=== PATIENT | male | born 1970 | race Asian ===

== ENCOUNTER 2018-01-09 15:22 | Emergency (ER) | payer OTHER, BC ==
[2018-01-09 15:27] VITALS: BP 130/89; PULSE 97; TEMP 98.7; BMI 25.1
--- NOTE | 2018-01-09 15:56 | PDOC ---
History of Present Illness - General Chief Complaint: Laceration Stated Complaint: FINGER INJURY Time Seen by Provider: 01/09/18 15:29 History Source: Patient Exam Limitations: No Limitations - History of Present Illness Initial Comments: 01/09/18 16:09 Patient is a 47-year-old male who presents to the emergency department today for a cut on his right thumb. Patient states he was cleaning up some garbage when he felt a piece of glass go into his thumb. He noticed that it was bleeding and he came to the emergency department for evaluation. Denies numbness and tingling to the extremity, fevers, weakness in the hand. Patient is right-hand dominant. Pt states he is due for a tetanus shot. Past History - Travel Traveled outside of the country in the last 30 days: No Close contact w/someone who was outside of country & ill: No - Past Medical History Allergies/Adverse Reactions: Allergies Allergy/AdvReac Type Severity Reaction Status Date / Time No Known Allergies Allergy Verified 01/09/18 15:23 Home Medications: Ambulatory Orders NK [No Known Home Medication] 01/09/18 COPD: No - Suicide/Smoking/Psychosocial Hx Smoking History: Never smoked Information on smoking cessation initiated: No Hx Alcohol Use: No Drug/Substance Use Hx: No Substance Use Type: None Review of Systems - Review of Systems Able to Perform ROS?: Yes Comments:: 01/09/18 16:10 CONSTITUTIONAL: Absent: fever, chills, diaphoresis, generalized weakness, malaise, loss of appetite MUSCULOSKELETAL: Absent: myalgia, arthralgia, joint swelling SKIN: Present: laceration to R 1st finger Absent: rash, itching, pallor HEMATOLOGIC/IMMUNOLOGIC: Absent: easy bleeding, easy bruising, lymphadenopathy, frequent infections NEUROLOGIC: Absent: headache, focal weakness or paresthesias, dizziness, unsteady gait, seizure, mental status changes, bladder or bowel incontinence PSYCHIATRIC: Absent: anxiety, depression, suicidal or homicidal ideation, hallucinations. Is the patient limited Bahamian proficient: No *Physical Exam - Vital Signs Last Vital Signs Temp Pulse Resp BP Pulse Ox 98.7 F 97 H 18 130/89 100 01/09/18 15:23 01/09/18 15:23 01/09/18 15:23 01/09/18 15:23 01/09/18 15:23 - Physical Exam Comments: 01/09/18 16:11 GENERAL: The patient is awake, alert, and fully oriented, in no acute distress. HEAD: Normal with no signs of trauma. EYES: Pupils equal, round and reactive to light, extraocular movements intact, sclera anicteric, conjunctiva clear. EXTREMITIES: Normal range of motion, no edema. NEUROLOGICAL: Normal speech, normal gait. PSYCH: Normal mood, normal affect. SKIN: 1cm laceration to the medial tip pad of the R thumb. No tendon exposure. PT able to fully flex and extend the thumbWarm, Dry, normal turgor, no rashes or lesions noted. Procedures - Laceration/Wound Repair Right Medial 1st digit Wound Length: to 2.5 cm Wound Explored: clean, no foreign body present Wound's Depth, Shape: superficial Irrigated w/ Saline: Yes Betadine Prep: Yes Wound Repaired With: Dermabond Medical Decision Making - Medical Decision Making 01/09/18 16:12 Patient is a 47-year-old male who presents emergency department today for a cut to his right first finger. -Patient with 1 cm laceration to the medial aspect of the right thumb pad. -Wound is shallow, repaired with Dermabond. -Wound cleaned and prepared with Betadine prior to repair. -Tetanus shot updated today. -DC home. Return precautions given. Patient says all discharge instructions and all questions were answered. *DC/Admit/Observation/Transfer Diagnosis at time of Disposition: Laceration - Discharge Dispostion Disposition: HOME Condition at time of disposition: Stable Decision to Admit order: No - Referrals Referrals: Marilynn Vega MS [Primary Care Provider] - - Patient Instructions Printed Discharge Instructions: DI for Laceration Repair With Dermabond Additional Instructions: You had your cut fixed today with dermabond It will fall off on its own in 2-4 days Your tetanus shot was updated today. Avoid soaking the hand. Keep it dry when showering. Please keep the area clean and pat dry. You may take Tylenol or Motrin as needed for pain. Follow the dosing instruction on the bottle. Return to the emergency department sooner if you have area of redness around the site, purulent drainage, fevers, or have any changes in your symptoms. - Post Discharge Activity
[2018-01-09] MEDS ORDERED: DIPHTH,PERTUSS(ACELL),TET 0.5 ML DISP.SYRIN IM ONE (15:57)
== END 2018-01-09 16:19 | disposition home or self-care (01) ==
LOC: JERFT 15:22
PROC: 0HQFXZZ Repair Right Hand Skin, External Approach (ICD-10-PCS; principal; 2018-01-09)
PROC: 3E0234Z Introduction of Serum, Toxoid and Vaccine into Muscle, Percutaneous Approach (ICD-10-PCS; 2018-01-09)
DX: S61.011A Laceration without foreign body of right thumb without damage to nail, initial encounter (principal); W25.XXXA Contact with sharp glass, initial encounter; Y93.H9 Activity, other involving exterior property and land maintenance, building and construction; Y92.038 Other place in apartment as the place of occurrence of the external cause; Y99.0 Civilian activity done for income or pay
CPT/HCPCS: 90715; 99282-25

== ENCOUNTER 2018-05-19 08:30 | Emergency (ER) | payer OTHER ==
[2018-05-19 08:36] VITALS: TEMP 98.1; BMI 25.1
--- NOTE | 2018-05-19 08:45 | PDOC ---
History of Present Illness - General Chief Complaint: Pain, Acute Stated Complaint: PAIN Time Seen by Provider: 05/19/18 08:44 Past History - Past Medical History Allergies/Adverse Reactions: Allergies Allergy/AdvReac Type Severity Reaction Status Date / Time No Known Allergies Allergy Verified 05/19/18 08:34 Home Medications: Ambulatory Orders Fenofibrate Nanocrystallized [Fenofibrate] 145 mg PO DAILY 05/19/18 COPD: No Kidney Stones: Yes - Suicide/Smoking/Psychosocial Hx Smoking History: Unknown if ever smoked Hx Alcohol Use: No Drug/Substance Use Hx: No Substance Use Type: None *Physical Exam - Vital Signs Last Vital Signs Temp Pulse Resp BP Pulse Ox 98.1 F 63 22 H 137/90 98 05/19/18 08:30 05/19/18 08:30 05/19/18 08:30 05/19/18 08:30 05/19/18 08:30 Moderate Sedation - Procedure Monitoring Vital Signs: Procedure Monitoring Vital Signs Temperature 98.1 F 05/19/18 08:30 Pulse Rate 63 05/19/18 08:30 Respiratory Rate 22 H 05/19/18 08:30 Blood Pressure 137/90 05/19/18 08:30 O2 Sat by Pulse Oximetry (%) 98 05/19/18 08:30
[2018-05-19] MEDS ORDERED: ONDANSETRON 4 MG/2 ML VIAL IVPUSH ONE ×2 (08:53→11:07)
[2018-05-19] MEDS ORDERED: SODIUM CHLORIDE 1,000 ML IV STA ×2 (08:53→11:09)
[2018-05-19] MEDS ORDERED: morphine CARPU-JECT 4 MG/1 ML DISP.SYRIN IVPUSH ONE (08:53)
--- NOTE | 2018-05-19 08:55 | PDOC ---
History of Present Illness - General Chief Complaint: Pain, Acute Stated Complaint: PAIN Time Seen by Provider: 05/19/18 08:44 History Source: Patient Exam Limitations: No Limitations - History of Present Illness Initial Comments: 05/19/18 09:04 Patient is a 47-year-old male past medical history of renal stones last stone in December, who presents to the emergency department today for right-sided flank pain. Patient states his symptoms started approximately last night at midnight. He states that the pain has been moving down his right flank. He states that the pain is currently a 10 out of 10. He states he cannot get comfortable. Admits to nausea but no vomiting. He states that this pain feels very similar to his last kidney stone. Denies fevers, chills, chest pain, shortness of breath , difficulty breathing, diarrhea, constipation, frequency, urgency and hematuria. Past History - Travel Traveled outside of the country in the last 30 days: No Close contact w/someone who was outside of country & ill: No - Past Medical History Allergies/Adverse Reactions: Allergies Allergy/AdvReac Type Severity Reaction Status Date / Time No Known Allergies Allergy Verified 05/19/18 08:34 Home Medications: Ambulatory Orders Fenofibrate Nanocrystallized [Fenofibrate] 145 mg PO DAILY 05/19/18 Ibuprofen 800 mg PO TID #30 tablet 05/19/18 Ondansetron [Zofran Odt -] 4 mg SL TID #10 od.tablet 05/19/18 Oxycodone HCl/Acetaminophen [Percocet 5-325 mg Tablet] 1 tab PO Q4H #10 tablet MDD 5 05/19/18 Tamsulosin HCl [Flomax -] 0.4 mg PO DAILY #7 capsule 05/19/18 COPD: No Kidney Stones: Yes - Suicide/Smoking/Psychosocial Hx Smoking History: Unknown if ever smoked Hx Alcohol Use: No Drug/Substance Use Hx: No Substance Use Type: None Review of Systems - Review of Systems Able to Perform ROS?: Yes Comments:: 05/19/18 08:58 CONSTITUTIONAL: Absent: fever, chills, diaphoresis, generalized weakness, malaise, loss of appetite HEENT: Absent: rhinorrhea, nasal congestion, throat pain, throat swelling, difficulty swallowing, mouth swelling, ear pain, eye pain, visual Changes CARDIOVASCULAR: Absent: chest pain, loss of consciousness, palpitations, irregular heart rate, peripheral edema RESPIRATORY: Absent: cough, shortness of breath, dyspnea with exertion, orthopnea, wheezing, stridor, hemoptysis GASTROINTESTINAL: Present: R lower quadrant pain Absent: abdominal pain, abdominal distension, nausea, vomiting, diarrhea, constipation, melena, hematochezia GENITOURINARY: Present: R flank pain Absent: dysuria, frequency, urgency, hesitancy, hematuria , genital pain MUSCULOSKELETAL: Absent: myalgia, arthralgia, joint swelling SKIN: Absent: rash, itching, pallor HEMATOLOGIC/IMMUNOLOGIC: Absent: easy bleeding, easy bruising, lymphadenopathy, frequent infections ENDOCRINE: Absent: unexplained weight gain, unexplained weight loss, heat intolerance, cold intolerance NEUROLOGIC: Absent: headache, focal weakness or paresthesias, dizziness, unsteady gait, seizure, mental status changes, bladder or bowel incontinence PSYCHIATRIC: Absent: anxiety, depression, suicidal or homicidal ideation, hallucinations. Is the patient limited Kyrgyz proficient: No *Physical Exam - Vital Signs Last Vital Signs Temp Pulse Resp BP Pulse Ox 98.1 F 63 22 H 137/90 98 05/19/18 08:30 05/19/18 08:30 05/19/18 08:30 05/19/18 08:30 05/19/18 08:30 - Physical Exam Comments: 05/19/18 08:59 GENERAL: Well developed, well nourished. Awake and alert. Moderate distress d/t pain, cannot get comfortable on bed. HEENT: Normocephalic, atraumatic. PERRLA, EOMI. No conjunctival pallor. Sclera are non- icteric. Moist mucous membranes. Oropharynx is clear. NECK: Supple. Full ROM. No JVD. Carotid pulses 2+ and symmetric, without bruits. No thyromegaly. No lymphadenopathy. CARDIOVASCULAR: Regular rate and rhythm. No murmurs, rubs, or gallops. Distal pulses are 2+ and symmetric. PULMONARY: No evidence of respiratory distress. Lungs clear to auscultation bilaterally. No wheezing, rales or rhonchi. ABDOMINAL: TTP RLQ. Soft. Non-distended. No rebound or guarding. No organomegaly. Normoactive bowel sounds. MUSCULOSKELETAL Normal range of motion at all joints. No bony deformities or tenderness. (+) R CVA tenderness. EXTREMITIES: No cyanosis. No clubbing. No edema. No calf tenderness. SKIN: Warm and dry. Normal capillary refill. No rashes. No jaundice. NEUROLOGICAL: Alert, awake, appropriate. Cranial nerves 2-12 intact. No deficits to light touch and temperature in face, upper extremities and lower extremities. No motor deficits in the in face, upper extremities and lower extremities. Normoreflexic in the upper and lower extremities. Normal speech. Toes are down- going bilaterally. Gait is normal without ataxia. PSYCHIATRIC: Cooperative. Good eye contact. Appropriate mood and affect. Moderate Sedation - Procedure Monitoring Vital Signs: Procedure Monitoring Vital Signs Temperature 98.1 F 05/19/18 08:30 Pulse Rate 63 05/19/18 08:30 Respiratory Rate 22 H 05/19/18 08:30 Blood Pressure 137/90 05/19/18 08:30 O2 Sat by Pulse Oximetry (%) 98 05/19/18 08:30 ED Treatment Course - LABORATORY CBC & Chemistry Diagram: 05/19/18 09:00 05/19/18 09:00 - RADIOLOGY Radiology Studies Ordered: Category Date Time Status SPIRAL- RENAL-STONE CT [CT] Stat CT Scan 05/19/18 08:54 Ordered Medical Decision Making - Medical Decision Making 05/19/18 09:05 Patient is a 47-year-old male who presents to the ER with 9 hours of right flank pain. On exam patient with right-sided CVA tenderness and right lower quadrant tenderness. Patient appears very uncomfortable on the bed and cannot get comfortable. High suspicion for renal stone at this time. Zofran, morphine and IV fluids ordered. Basic labs, urine and CT spiral Reevaluate 05/19/18 13:14 2mm renal stone seen in the 05/19/18 17:14 Pt states that the pain is managable at this time and would like to go home Pain meds, flomax, zofran sent to patient pharmacy pt to f/u with PCP and urology DC home I discussed the physical exam findings, ancillary test results and final diagnoses with the patient. I answered all of the patient's questions. The patient was satisfied with the care received and felt comfortable with the discharge plan and treatment plan. The Patient agrees to follow up with the primary care physician/specialist within 24-72 hours. Return precautions were given. *DC/Admit/Observation/Transfer Diagnosis at time of Disposition: Kidney stone on right side - Discharge Dispostion Disposition: HOME Condition at time of disposition: Stable Decision to Admit order: No - Referrals Referrals: Nolan Leija MD [Staff Physician] - - Patient Instructions Printed Discharge Instructions: DI for Kidney Stones Additional Instructions: You have a kidney stone on the right side as seen on CAT scan. It is approximately 2 mm and should pass on its own. Please drink plenty of fluids. Take ibuprofen 800 mg every 8 hours for pain and inflammation. You may take 1 Percocet every 4 hours as needed for breakthrough pain. Do not drink or drive after taking this medication as it may make you drowsy. Please take the Zofran every 8 hours as needed for nausea. Take the Flomax daily to help with urination. Follow up with your urologist in 2-3 days. Return to the ER if he develops fevers, worsening pain, nausea vomiting despite medication or if you have any changes in your symptoms. - Post Discharge Activity Forms/Work/School Notes: Back to Work
[2018-05-19] MEDS ORDERED: ONDANSETRON 4 MG/2 ML VIAL ONE ×3 (08:57→11:59)
[2018-05-19] MEDS ORDERED: morphine SULFATE 4 MG/ML VIAL ONE (08:57)
[2018-05-19 09:16] LABS: URINE APPEARANCE CLEAR; URINE BILIRUBIN NEGATIVE (<2.0 mg/dL); URINE COLOR YELLOW; URINE GLUCOSE (UA) NEGATIVE (NEGATIVE); URINE KETONE NEGATIVE (NEGATIVE); URINE LEUK ESTERASE NEGATIVE (NEGATIVE); URINE NITRITE NEGATIVE (NEGATIVE); URINE PROTEIN NEGATIVE (NEGATIVE); URINE UROBILINOGEN NEGATIVE mg/dL (0.2-1.0)
[2018-05-19 09:19] LABS: BASO % 0.4 % (0-2.0); EOS % 0.5 % (0-4.5); HEMATOCRIT 45.1 % (35.4-49); HEMOGLOBIN 16.1 GM/dL (11.7-16.9); LYMPH % 25.6 % (8-40); MCH 30.6 pg (25.7-33.7); MCHC 35.6 g/dl (32.0-35.9); MEAN CELL VOLUME 85.8 fl (80-96); MEAN PLT VOLUME 8.5 fl (7.5-11.1); MONO % 5.3 % (3.8-10.2); NEUT % 68.2 % (42.8-82.8); PLATELET COUNT 229 K/MM3 (134-434); RBC 5.25 M/mm3 (4.00-5.60); WHITE BLOOD COUNT 8.2 K/mm3 (4.0-10.0)
[2018-05-19 10:12] LABS: URINE MUCUS RARE
[2018-05-19 10:17] LABS: ALBUMIN 4.3 g/dl (3.4-5.0); ALK PHOS 81 U/L (45-117); ANION GAP 7 MMOL/L (8-16); BILIRUBIN,TOTAL 0.6 mg/dL (0.2-1); BLOOD UREA NITROGEN 17 mg/dL (7-18); CALCIUM 9.6 mg/dL (8.5-10.1); CHLORIDE 104 mmol/L (98-107); CO2 28 mmol/L (21-32); CREATININE 1.1 mg/dL (0.55-1.3); GLUCOSE,RANDOM 150 mg/dL (74-106); POTASSIUM 4.5 mmol/L (3.5-5.1); SGOT/AST 36 U/L (15-37); SGPT/ALT 82 U/L (13-61); SODIUM 139 mmol/L (136-145)
[2018-05-19] MEDS ORDERED: KETOROLAC TROMETHAMINE 30 MG/1 ML VIAL IVPUSH ONE (11:07)
[2018-05-19] MEDS ORDERED: KETOROLAC TROMETHAMINE 30 MG/1 ML VIAL ONE (11:59)
[2018-05-19 18:17] VITALS: BP 125/62; PULSE 62
== END 2018-05-19 18:16 | disposition home or self-care (01) ==
LOC: JER 08:30
PROC: 3E0337Z Introduction of Electrolytic and Water Balance Substance into Peripheral Vein, Percutaneous Approach (ICD-10-PCS; principal; 2018-05-19)
PROC: 3E033GC Introduction of Other Therapeutic Substance into Peripheral Vein, Percutaneous Approach (ICD-10-PCS; 2018-05-19)
PROC: 3E033GC Introduction of Other Therapeutic Substance into Peripheral Vein, Percutaneous Approach (ICD-10-PCS; 2018-05-19)
PROC: 3E033NZ Introduction of Analgesics, Hypnotics, Sedatives into Peripheral Vein, Percutaneous Approach (ICD-10-PCS; 2018-05-19)
PROC: 3E0333Z Introduction of Anti-inflammatory into Peripheral Vein, Percutaneous Approach (ICD-10-PCS; 2018-05-19)
DX: N20.0 Calculus of kidney (principal)
CPT/HCPCS: 36415; 74176; 80053; 81003; 81015; 85025; 87086; 99284-25; J7030

== ENCOUNTER 2019-01-18 16:57 | Emergency (ER) | payer BC ==
[2019-01-18] MEDS ORDERED: SODIUM CHLORIDE 1,000 ML IV STA ×2 (17:15→20:07)
[2019-01-18] MEDS ORDERED: KETOROLAC TROMETHAMINE 30 MG/1 ML VIAL IVPUSH ONE (17:15)
[2019-01-18 17:17] VITALS: TEMP 97.7; BMI 26.6
--- NOTE | 2019-01-18 17:18 | PDOC ---
Rapid Medical Evaluation Chief Complaint: Pain, Acute Time Seen by Provider: 01/18/19 17:14 Medical Evaluation: Allergies Allergy/AdvReac Type Severity Reaction Status Date / Time No Known Allergies Allergy Verified 01/18/19 17:14 01/18/19 17:15 48 year old male c/o right flank pain pain 02/15. + right CVAT + dysuria PMHX: kidney stone A: kidney stone P: Labs Urine culture spiral CT patint to the ER for further management of care. 01/18/19 17:17 Discharge Disposition - Diagnosis Flank pain - Referrals - Patient Instructions - Post Discharge Activity
[2019-01-18] MEDS ORDERED: ONDANSETRON 4 MG/2 ML VIAL IVPUSH ONE (17:30)
[2019-01-18 17:43] LABS: BASO % 0.7 % (0-2.0); EOS % 0.9 % (0-4.5); HEMATOCRIT 47.2 % (35.4-49); HEMOGLOBIN 15.9 GM/dL (11.7-16.9); LYMPH % 19.1 % (8-40); MCH 29.3 pg (25.7-33.7); MCHC 33.7 g/dl (32.0-35.9); MEAN PLT VOLUME 8.6 fl (7.5-11.1); MONO % 6.7 % (3.8-10.2); NEUT % 72.6 % (42.8-82.8); PLATELET COUNT 239 K/MM3 (134-434); RBC 5.43 M/mm3 (4.00-5.60); RDW 13.7 % (11.9-15.9); WHITE BLOOD COUNT 8.8 K/mm3 (4.0-10.0)
[2019-01-18] MEDS ORDERED: KETOROLAC TROMETHAMINE 30 MG/1 ML VIAL ONE (17:50)
[2019-01-18 17:51] LABS: URINE APPEARANCE CLEAR; URINE BILIRUBIN NEGATIVE (NEGATIVE); URINE COLOR YELLOW; URINE GLUCOSE (UA) NEGATIVE (NEGATIVE); URINE KETONE NEGATIVE (NEGATIVE); URINE LEUK ESTERASE NEGATIVE (NEGATIVE); URINE NITRITE NEGATIVE (NEGATIVE); URINE PROTEIN NEGATIVE (NEGATIVE); URINE UROBILINOGEN 0.2 mg/dL (0.2-1.0)
[2019-01-18] MEDS ORDERED: ONDANSETRON 4 MG/2 ML VIAL ONE (17:51)
--- NOTE | 2019-01-18 17:55 | PDOC ---
History of Present Illness - General Chief Complaint: Pain, Acute Stated Complaint: ABD PAIN Time Seen by Provider: 01/18/19 17:14 History Source: Patient Exam Limitations: No Limitations - History of Present Illness Initial Comments: Pt is a 48 yo M, with PMH of HLD and nephrolithiasis, who is presenting with complaints of R-sided abdominal pain since yesterday. Pt states the pain started yesterday with urinary burning, and progressed to abdominal pain today. The pain in his abdomen is "burning" and intermittent, and feels similar to his prior episodes of kidney stones. Pt also endorses nausea, but no vomiting and has tolerated PO intake today. Pt denies any fevers/chills, headache, vision changes, syncope, chest pain, palpitations, SOB, vomiting, hematuria, flank pain , testicular pain or swelling, diarrhea/constipation, or leg swelling. Allergies: NKDA PCP: Brittani Samuels Social: Pt denies any cigarette, alcohol, or drug use. Pt denies any recent travel or sick contacts. Surgical: no relevant history. Family: no relevant history. 01/18/19 20:10 Past History - Travel Traveled outside of the country in the last 30 days: No Close contact w/someone who was outside of country & ill: No - Past Medical History Allergies/Adverse Reactions: Allergies Allergy/AdvReac Type Severity Reaction Status Date / Time No Known Allergies Allergy Verified 01/18/19 17:14 Home Medications: Ambulatory Orders Fenofibrate Nanocrystallized [Fenofibrate] 145 mg PO DAILY 05/19/18 Tamsulosin HCl [Flomax] 0.4 mg PO DAILY PRN #5 capsule 01/18/19 COPD: No Kidney Stones: Yes - Suicide/Smoking/Psychosocial Hx Smoking History: Never smoked Hx Alcohol Use: No Drug/Substance Use Hx: No Substance Use Type: None Review of Systems - Review of Systems Able to Perform ROS?: Yes Is the patient limited Chinese proficient: No Constitutional: Yes: Weight Stable. No: Chills, Diaphoresis, Fever, Loss of Appetite, Malaise, Weakness HEENTM: No: Recent change in vision, Nose Congestion, Throat Pain, Throat Swelling, Difficulty Swallowing Respiratory: No: Cough, Orthopnea, Shortness of Breath Cardiac (ROS): No: Chest Pain, Edema, Irregular Heart Rate, Lightheadedness, Palpitations, Syncope, Chest Tightness ABD/GI: Yes: See HPI, Nausea, Abdominal cramping. No: Abdominal Distended, Constipated, Diarrhea, Poor Appetite, Poor Fluid Intake, Vomiting : Yes: Burning, Dysuria. No: Discharge, Frequency, Flank Pain, Hematuria, Incontinence, Pain, Urgency, Testicular Mass Musculoskeletal: No: Back Pain, Joint Pain, Muscle Pain, Muscle Weakness Integumentary: No: Rash Neurological: No: Headache, Numbness, Paresthesia, Weakness, Dizziness Psychiatric: No: Sleep Pattern Change, Change in Appetite Endocrine: No: Increased Urine, Change in Weight Hematologic/Lymphatic: No: Anemia, Blood Clots, Easy Bleeding, Easy Bruising All Other Systems: Reviewed and Negative *Physical Exam - Vital Signs Last Vital Signs Temp Pulse Resp BP Pulse Ox 97.7 F 68 18 142/93 97 01/18/19 17:15 01/18/19 17:15 01/18/19 17:15 01/18/19 17:15 01/18/19 17:15 - Physical Exam Comments: Vitals stable, pt afebrile. Pt lying on his side in the bed, normal body habitus. Pt alert and oriented x3. painter and decorator generally intact, muscular strength and sensation intact. No midline spinal tenderness, step-offs, or crepitus. Head normocephalic, atraumatic. Eyes PERRLA, EOMI. Oropharynx without erythema or exudates, no LAD b/l. No nasal congestion, hearing intact. Clear heart sounds, S1/S2, no JVD, b/l pedal edema, or heart murmur. Clear lung sounds, no respiratory distress, wheezes, crackles, or accessory muscle use. No abdominal or CVA tenderness to palpation, no rebound, no guarding. Abdomen soft, non-distended, and with normoactive bowel sounds. Benign abdominal exam. Skin without jaundice or rash. 01/18/19 20:17 ED Treatment Course - LABORATORY CBC & Chemistry Diagram: 01/18/19 17:26 01/18/19 17:26 - ADDITIONAL ORDERS Additional order review: Laboratory Results 01/18/19 17:26 Urine Color Yellow Urine Appearance Clear Urine pH 5.0 Ur Specific [place] 1.027 Urine Protein Negative Urine Glucose (UA) Negative Urine Ketones Negative Urine Blood Negative Urine Nitrite Negative Urine Bilirubin Negative Urine Urobilinogen 0.2 Ur Leukocyte Esterase Negative Medical Decision Making - Critical Care Time Total Critical Care Time (minutes): 25 - Medical Decision Making Pt was seen at bedside, also will be seen by attending Dr. Anne. Pt presenting with complaints of R lower abdominal pain, consistent with his prior kidney stones. No abdominal or CVA TTP on exam. Will evaluate with labs and kidney US to evaluate for infection vs uncomplicated renal/UPJ stones. Provided 4 mg IV zofran and 30 mg IV toradol for improvement of pain. Will continue to reassess pt and monitor for symptomatic improvement. Renal US with non-obstructing 4 mm L renal stone; no hydro CBC and CMP WNL for pt (known elevated LFTs, Cr the same as last visit) UA with no infection Provided 4 mg IV morphine, additional 1 L IV NS and flomax for continued pain and difficulty with urination. 01/18/19 19:59 Pt with continued pain, providing 1 g ofirmev and 4 mg IV morphine (8 mg morphine) Ordered CT abd/pelvis with IV contrast to eval for other etiologies. Abdomen still non-tender. 01/18/19 21:27 Pt vomiting and could not tolerate CT scan; providing reglan and benadryl 01/18/19 22:[address] scan; endorsed to night team. 01/19/19 00:20 *DC/Admit/Observation/Transfer Diagnosis at time of Disposition: Flank pain - Prescriptions Prescriptions: Tamsulosin HCl [Flomax] 0.4 mg PO DAILY PRN #5 capsule PRN Reason: Pain - Referrals Referrals: Brittani Samuels MD [Primary Care Provider] - - Patient Instructions - Post Discharge Activity
[2019-01-18 18:16] LABS: ALBUMIN 4.2 g/dl (3.4-5.0); BILIRUBIN,TOTAL 0.5 mg/dL (0.2-1); BLOOD UREA NITROGEN 17.6 mg/dL (7-18); CALCIUM 9.9 mg/dL (8.5-10.1); CREATININE 1.2 mg/dL (0.55-1.3); POTASSIUM 4.4 mmol/L (3.5-5.1); TOT PROT 7.9 g/dl (6.4-8.2)
[2019-01-18] MEDS ORDERED: morphine CARPU-JECT 4 MG/1 ML DISP.SYRIN IVPUSH ONE ×2 (19:44→21:24)
[2019-01-18] MEDS ORDERED: TAMSULOSIN HCL 0.4 MG CAP PO ONE (20:11)
[2019-01-18] MEDS ORDERED: morphine SULFATE 4 MG/ML VIAL ONE ×2 (20:36→21:31)
[2019-01-18] MEDS ORDERED: TAMSULOSIN HCL 0.4 MG CAP ONE (20:45)
[2019-01-18] MEDS ORDERED: ACETAMINOPHEN 1000 MG/100 ML VIAL (NON FORMULARY) IVPB ONE (21:18)
[2019-01-18] MEDS ORDERED: ACETAMINOPHEN INJECTION 100 ML IVPB ONE (21:31)
--- NOTE | 2019-01-18 21:45 | PDOC ---
Attending Attestation - Resident Resident Name: aDnii Sow - ED Attending Attestation I have performed the following: I have examined & evaluated the patient, The case was reviewed & discussed with the resident, I agree w/resident's findings & plan, Exceptions are as noted - HPI HPI: 01/18/19 21:38 48 M with h/o HLD, kidney stones, presenting to ED with R flank and R abdominal pain. Pt states pain started yesterday, feels like his previous kidney stones. Endorses dysuria. Denies F/C. Endorses nausea without vomiting. - Physicial Exam PE: 01/18/19 21:45 GENERAL: Awake, alert, and fully oriented, in no acute distress. HEAD: No signs of trauma EYES: PERRLA, EOMI, sclera anicteric, conjunctiva clear ENT: Auricles normal inspection, hearing grossly normal, nares patent, oropharynx clear without exudates. Moist mucosa NECK: Nontender, no stepoffs, Normal ROM, supple, no lymphadenopathy, JVD, or masses LUNGS: Breath sounds equal, clear to auscultation bilaterally. No wheezes, and no crackles HEART: Regular rate and rhythm, normal S1 and S2, no murmurs, rubs or gallops ABDOMEN: Soft, nontender, normoactive bowel sounds. No guarding, no rebound. No masses EXTREMITIES: Normal range of motion, no edema. No clubbing or cyanosis. No cords, erythema, or tenderness NEUROLOGICAL: Cranial nerves II through XII intact. 5/5 strength and sensation in all extremities, Normal speech, normal gait, normal cerebellar function SKIN: Warm, Dry, normal turgor, no rashes or lesions noted. : normal scrotum, normal cremasteric reflex, no masses, no tenderness - Medical Decision Making 01/18/19 21:46 48 M with R sided abdominal and flank pain. Likely nephrolithiasis. Labs and UA unremarkable. Renal US without hydro. Will check CT with contrast to r/o stone vs appy 01/19/19 01:18 CT shows 2mm stone in bladder Pt reassessed - now has complete resolution of pain. CT also shows gallstones with GB distention. Pt with normal LFTs, no RUQ tenderness Pt informed of result, will f/u with GI. Pt is well appearing, with normal vitals. Clinically stable for DC at this time. I discussed the physical exam findings, ancillary test results and final diagnoses with the patient. I answered all of the patient's questions. The patient was satisfied with the care received and felt comfortable with the discharge plan and treatment plan. The patient agrees to follow up with the primary care physician within 24-72 hours.
[2019-01-18] MEDS ORDERED: METOCLOPRAMIDE HCL INJECTION 10 MG/2 ML VIAL IVPUSH ONE (22:33)
[2019-01-18] MEDS ORDERED: METOCLOPRAMIDE HCL INJECTION 10 MG/2 ML VIAL ONE (23:36)
[2019-01-18 23:51] VITALS: BP 127/85; PULSE 56
[2019-01-19] MEDS ORDERED: ONDANSETRON *ODT* 4 MG TABLET SL ONE (01:20)
--- NOTE | 2019-01-19 01:23 | PDOC ---
*Physical Exam - Vital Signs Last Vital Signs Temp Pulse Resp BP Pulse Ox 97.7 F 56 L 20 127/85 97 01/18/19 17:15 01/18/19 23:51 01/18/19 23:51 01/18/19 23:51 01/18/19 23:51 ED Treatment Course - LABORATORY CBC & Chemistry Diagram: 01/18/19 17:26 01/18/19 17:26 - ADDITIONAL ORDERS Additional order review: Laboratory Results 01/18/19 01/18/19 17:26 17:26 Sodium 141 Potassium 4.4 Chloride 105 Carbon Dioxide 30 Anion Gap 6 L BUN 17.6 Creatinine 1.2 Est GFR (CKD-EPI)AfAm 83.54 Est GFR (CKD-EPI)NonAf 72.08 Random Glucose 130 H Calcium 9.9 Total Bilirubin 0.5 AST 37 ALT 93 H Alkaline Phosphatase 83 Total Protein 7.9 Albumin 4.2 Urine Color Yellow Urine Appearance Clear Urine pH 5.0 Ur Specific Preston 1.027 Urine Protein Negative Urine Glucose (UA) Negative Urine Ketones Negative Urine Blood Negative Urine Nitrite Negative Urine Bilirubin Negative Urine Urobilinogen 0.2 Ur Leukocyte Esterase Negative 01/18/19 17:26 RBC 5.43 MCV 87.0 MCHC 33.7 RDW 13.7 MPV 8.6 Neutrophils % 72.6 Lymphocytes % 19.1 D Monocytes % 6.7 Eosinophils % 0.9 Basophils % 0.7 - Medications Given in the ED: ED Medications Discontinued Medications Generic Name Dose Route Start Last Admin Trade Name Freq PRN Reason Stop Dose Admin Acetaminophen 1,000 mg 01/18/19 21:18 01/18/19 21:43 Ofirmev Injection - IVPB 01/18/19 21:19 1,000 mg ONCE ONE Administration Diphenhydramine HCl 25 mg 01/18/19 22:33 01/18/19 23:40 Benadryl Injection - IVPUSH 01/18/19 22:34 25 mg ONCE ONE Administration Sodium Chloride 1,000 mls @ 1,000 mls/hr 01/18/19 17:15 01/18/19 17:54 Normal Saline - IV 01/18/19 18:14 1,000 mls/hr ASDIR STA Administration Sodium Chloride 1,000 mls @ 1,000 mls/hr 01/18/19 20:07 01/18/19 20:25 Normal Saline - IV 01/18/19 21:06 1,000 mls/hr ASDIR STA Administration Ketorolac Tromethamine 30 mg 01/18/19 17:15 01/18/19 17:54 Toradol Injection - IVPUSH 01/18/19 17:16 30 mg ONCE ONE Administration Metoclopramide HCl 10 mg 01/18/19 22:33 01/18/19 23:45 Reglan Injection - IVPUSH 01/18/19 22:34 10 mg ONCE ONE Administration Morphine Sulfate 4 mg 01/18/19 19:44 01/18/19 20:25 Morphine Injection - IVPUSH 01/18/19 19:45 4 mg ONCE ONE Administration Morphine Sulfate 4 mg 01/18/19 21:24 01/18/19 21:42 Morphine Injection - IVPUSH 01/18/19 21:25 4 mg ONCE ONE Administration Ondansetron HCl 4 mg 01/18/19 17:30 01/18/19 17:54 Zofran Injection IVPUSH 01/18/19 17:31 4 mg ONCE ONE Administration Tamsulosin HCl 0.4 mg 01/18/19 20:11 01/18/19 20:49 Flomax - PO 01/18/19 20:12 0.4 mg ONCE ONE Administration Medical Decision Making - Medical Decision Making 01/19/19 01:37 Patient signed out by resident Dr. Sow In short patient is a 48 year old wuth a history of HLD and nephrolithiasis who presents with R sided abdominal pain and nausea labs unremarkable pending CT and dispo ED Course CT with possible chronic cholecystitis and 2mm posterior bladder stone patient likely passed kidney stone *DC/Admit/Observation/Transfer Diagnosis at time of Disposition: Flank pain, Nephrolithiasis - Discharge Dispostion Disposition: HOME Condition at time of disposition: Stable Decision to Admit order: No - Prescriptions Prescriptions: Tamsulosin HCl [Flomax] 0.4 mg PO DAILY PRN #5 capsule PRN Reason: Pain - Referrals Referrals: Brittani Samuels MD [Primary Care Provider] - Med Tsang MD [Staff Physician] - - Patient Instructions Printed Discharge Instructions: DI for Kidney Stones Additional Instructions: You were seen in the ED for abdominal pain Your labwork and imaging show stone in the bladder that you likely passed. The CAT scan also showed possible old inflammation of the gallbladder Please follow up with your Primary Doctor within 1 week. You have a referral for Urology, please follow up within 1 week. Return to the ED if you experience worsening abdominal pain, nausea, vomiting, or fevers. - Post Discharge Activity
[2019-01-19] MEDS ORDERED: ONDANSETRON *ODT* 4 MG TABLET ONE (01:33)
== END 2019-01-19 02:11 | disposition home or self-care (01) ==
LOC: JER 16:57
PROC: 3E033NZ Introduction of Analgesics, Hypnotics, Sedatives into Peripheral Vein, Percutaneous Approach (ICD-10-PCS; principal; 2019-01-18)
PROC: 3E033GC Introduction of Other Therapeutic Substance into Peripheral Vein, Percutaneous Approach (ICD-10-PCS; 2019-01-18)
PROC: 3E0333Z Introduction of Anti-inflammatory into Peripheral Vein, Percutaneous Approach (ICD-10-PCS; 2019-01-18)
PROC: 3E0337Z Introduction of Electrolytic and Water Balance Substance into Peripheral Vein, Percutaneous Approach (ICD-10-PCS; 2019-01-18)
DX: R10.31 Right lower quadrant pain (principal); E78.5 Hyperlipidemia, unspecified; N20.0 Calculus of kidney
CPT/HCPCS: 36415; 74177-TC; 76775-TC; 80053; 81003; 85025; 99283-25; J0131; J7030; Q0162

== ENCOUNTER 2019-12-14 06:46 | Emergency (ER) | payer BC ==
[2019-12-14 07:15] VITALS: TEMP 98.6
--- NOTE | 2019-12-14 07:24 | PDOC ---
Attending Attestation - Resident Resident Name: Yuki Antonio - HPI HPI: 12/14/19 11:58 Pt presents to the ED complaining of the acute onset of R flank pain without nausea, vomiting or fever. Denies urinary complaints. 12/14/19 12:07 12/14/19 12:14 - Physicial Exam PE: 12/14/19 12:15 Agree with resident exam. Patient appears mildly uncomfortable. Abdomen is soft, non tender, non distended without guarding or rebound. No CVA tenderness. - Medical Decision Making 12/14/19 12:14 Pt presents to the ED complaining of the acute onset of R flank pain without nausea, vomiting or fever. Labs are within normal limits. Will check CT scan to rule out renal stone or other intrabdominal pathology. Will reassess. Discharge - Discharge Information Problems reviewed: Yes Clinical Impression/Diagnosis: Kidney stone on left side Condition: Stable Disposition: HOME - Additional Discharge Information Prescriptions: Tamsulosin HCl [Flomax -] 0.4 mg PO ONCE PRN #7 capsule PRN Reason: Pain Ondansetron [Zofran *Odt*] 4 mg SL TID PRN #18 od.tablet PRN Reason: Nausea - Follow up/Referral Referrals: Brittani Samuels MD [Primary Care Provider] - - Patient Discharge Instructions Patient Printed Discharge Instructions: DI for Kidney Stones Additional Instructions: You were seen in the emergency department for abdominal pain, and you were found to have a kidney stone. You had a CT scan to confirm this, and the stone was found to be 1.3 mm in size and located in the bladder. This indicates that the stone will most likely pass on its own. Home Care: - You have been prescribed a short course of tamsulosin (Flomax) to help pass the stone. - You have been prescribed Zofran for nausea. - You may use over the counter pain medications such as ibuprofen (Motrin, Advil) 600mg every 6 hours as needed for pain. - Make sure you are drinking plenty of fluids to help pass the kidney stone Follow Up: - Please follow- up with your PCP. You should make an appointment within the next week, especially if your symptoms do not resolve over the next few days. - Seek immediate medical care if you have worsening of your symptoms, you do not pass the stone within 3-4 days, you stop making urine entirely, you have noticeable blood in your urine, you develop fevers to 101F, or you have any medical emergency. - Post Discharge Activity
--- NOTE | 2019-12-14 07:24 | PDOC ---
History of Present Illness - General Chief Complaint: Pain, Acute Stated Complaint: PAIN Time Seen by Provider: 12/14/19 07:23 History Source: Patient Exam Limitations: No Limitations - History of Present Illness Initial Comments: 12/14/19 07:24 HPI: This is a 49 y/o male with a PMH of nephrolithiasis and HLD presenting to the ED with non-radiating L. sided flank pain x2 days. 2 days ago he began having dysuria w/o hematuria and incomplete bladder emptying. He then began having a colicky tight sqeezing pain that became constant and sharp this morning. Motrin improved the pain. He has previously had stones on his r.side, but non on the left. He denies any fever/chills, N/V, diarrhea or constipation. PCP: Dr. Brittani Samuels ROS: GENERAL/CONSTITUTIONAL: No fever/chills. No weakness. CARDIOVASCULAR: No chest pain or shortness of breath. RESPIRATORY: No cough, wheezing, or hemoptysis. GASTROINTESTINAL: No nausea, vomiting, diarrhea or constipation. GENITOURINARY: Yes dysuria and incomplete emptying. No hematuria. MUSCULOSKELETAL: Yes left flank pain and LUQ pain. SKIN: No rash NEUROLOGIC: No headache, loss of consciousness, or change in strength/sensation. PMH: Nephrolithiasis, HLD PSx: Denied Social Hx: Denied Etoh, tobacco Meds: Fenofibrate Allergies: KNDA PE: GENERAL: Awake, alert, and fully oriented, in no acute distress. Laying in bed on his side, in mild distress. Conversational. HEAD: No signs of trauma EYES: PERRLA, EOMI, sclera anicteric NECK: Normal ROM, supple, no lymphadenopathy, JVD, or masses LUNGS: Breath sounds equal, clear to auscultation bilaterally. No wheezes, and no crackles HEART: Regular rate and rhythm, normal S1 and S2, no murmurs, rubs or gallops ABDOMEN: Tender to palpation in LUQ and L.flank. No guarding, no rebound. No m asses EXTREMITIES: Normal range of motion, no edema. NEUROLOGICAL: Cranial nerves II through XII grossly intact. Normal speech, normal gait SKIN: Warm, Dry, normal turgor, no rashes or lesions noted. MDM: 12/14/19 08:13 This is a 49 y/o male with a PMH of nephrolithiasis and HLD presenting to the ED with non-radiating L. sided flank pain x2 days. - Known hx of stones - CBC, CMP, renal U/s - 30mg Toradol for pain 12/14/19 10:22 - urine normal - CBC with leukocytosis RENAL U/S: IMPRESSION: Tiny right renal lower pole cyst measuring 7 mm. Both kidneys appear otherwise unremarkable without gross evidence of hydronephrosis or stones. - renal U/S with no findings for l. side pathology where patient has pain - will CT scan - CT ABD N/C: IMPRESSION: 1. 1.3 mm urinary bladder calculus consistent with a recently passed stone. There is a mild degree of residual hydronephrosis within the left urinary tract. 2. Cholelithiasis. Please see above discussion. 12/14/19 12:00 - percocet, acetaminophen for further pain control 12/14/19 12:29 - 30mg IV toradol 12/14/19 13:50 - Pt reports his pain is still bad, will give 4mg morphone and re-eval - Pt reports pain is controlled, can manage at home - D/c with flomax, zofran, and ibuprofen Past History - Medical History Allergies/Adverse Reactions: Allergies Allergy/AdvReac Type Severity Reaction Status Date / Time apple Allergy Swelling Verified 12/14/19 08:35 peach Allergy Swelling Verified 12/14/19 08:35 Home Medications: Ambulatory Orders Fenofibrate Nanocrystallized [Fenofibrate] 145 mg PO DAILY 05/19/18 Ondansetron [Zofran *Odt*] 4 mg SL TID PRN #18 od.tablet 12/14/19 Tamsulosin HCl [Flomax -] 0.4 mg PO ONCE PRN #7 capsule 12/14/19 COPD: No Kidney Stones: Yes - Immunization History Immunization Up to Date: No - Psycho-Social/Smoking History Smoking History: Never smoked Have you smoked in the past 12 months: No Information on smoking cessation initiated: No - Substance Abuse Hx (Audit-C & DAST Scrn) How often the patient has a drink containing alcohol: Never Score: In Men: 4 or > Positive; In Women: 3 or > Positive: 0 Screen Result (Pos requires Nsg. Audit-10AR): Negative In the last yr the pt used illegal drug/Rx for NonMed reason: No Score: Yes response is considered Positive: 0 Screen Result (Positive result requires Nsg. DAST-10): Negative *Physical Exam - Vital Signs Last Vital Signs Temp Pulse Resp BP Pulse Ox 98.6 F 62 20 140/83 99 12/14/19 07:12 12/14/19 07:12 12/14/19 07:12 12/14/19 07:12 12/14/19 07:12 ED Treatment Course - LABORATORY CBC & Chemistry Diagram: 12/14/19 08:00 12/14/19 08:00 Discharge - Discharge Information Problems reviewed: Yes Clinical Impression/Diagnosis: Kidney stone on left side Condition: Stable Disposition: HOME - Admission No - Additional Discharge Information Prescriptions: Tamsulosin HCl [Flomax -] 0.4 mg PO ONCE PRN #7 capsule PRN Reason: Pain Ondansetron [Zofran *Odt*] 4 mg SL TID PRN #18 od.tablet PRN Reason: Nausea - Follow up/Referral Referrals: Brittani Samuels MD [Primary Care Provider] - - Patient Discharge Instructions Patient Printed Discharge Instructions: DI for Kidney Stones Additional Instructions: You were seen in the emergency department for abdominal pain, and you were found to have a kidney stone. You had a CT scan to confirm this, and the stone was found to be 1.3 mm in size and located in the bladder. This indicates that the stone will most likely pass on its own. Home Care: - You have been prescribed a short course of tamsulosin (Flomax) to help pass the stone. - You have been prescribed Zofran for nausea. - You may use over the counter pain medications such as ibuprofen (Motrin, Advil) 600mg every 6 hours as needed for pain. - Make sure you are drinking plenty of fluids to help pass the kidney stone Follow Up: - Please follow- up with your PCP. You should make an appointment within the next week, especially if your symptoms do not resolve over the next few days. - Seek immediate medical care if you have worsening of your symptoms, you do not pass the stone within 3-4 days, you stop making urine entirely, you have noticeable blood in your urine, you develop fevers to 101F, or you have any med ica emergency. - Post Discharge Activity
[2019-12-14] MEDS ORDERED: SODIUM CHLORIDE 0.9% 500 ML INFUS.BAG IV ONE ×2 (07:47→11:27)
[2019-12-14] MEDS ORDERED: KETOROLAC TROMETHAMINE 15 MG/ML VIAL IVPUSH ONE (07:58)
[2019-12-14] MEDS ORDERED: KETOROLAC TROMETHAMINE 60 MG/2 ML VIAL ONE (08:18)
[2019-12-14 08:43] LABS: BASO % 0.1 % (0-2.0); EOS % 0.1 % (0-4.5); HEMATOCRIT 44.1 % (35.4-49); LYMPH % 6.6 % (8-40); MCH 29.5 pg (25.7-33.7); MCHC 34.1 g/dl (32.0-35.9); MEAN CELL VOLUME 86.4 fl (80-96); MEAN PLT VOLUME 8.3 fl (7.5-11.1); MONO % 3.3 % (3.8-10.2); NEUT % 89.9 % (42.8-82.8); PLATELET COUNT 218 K/MM3 (134-434); RBC 5.11 M/mm3 (4.00-5.60); RDW 13.8 % (11.9-15.9); WHITE BLOOD COUNT 12.2 K/mm3 (4.0-10.0)
[2019-12-14 08:45] LABS: URINE APPEARANCE TURBID; URINE BILIRUBIN NEGATIVE (NEGATIVE); URINE COLOR YELLOW; URINE GLUCOSE (UA) NEGATIVE (NEGATIVE); URINE KETONE NEGATIVE (NEGATIVE); URINE LEUK ESTERASE NEGATIVE (NEGATIVE); URINE NITRITE NEGATIVE (NEGATIVE); URINE PROTEIN NEGATIVE (NEGATIVE)
[2019-12-14 09:16] LABS: ALBUMIN 4.4 g/dl (3.4-5.0); BILIRUBIN,TOTAL 0.6 mg/dL (0.2-1); BLOOD UREA NITROGEN 19.2 mg/dL (7-18); CALCIUM 9.5 mg/dL (8.5-10.1); CREATININE 1.2 mg/dL (0.55-1.3); POTASSIUM 3.9 mmol/L (3.5-5.1); TOT PROT 7.9 g/dl (6.4-8.2)
[2019-12-14] MEDS ORDERED: ONDANSETRON 4 MG/2 ML VIAL IVPB ONE (11:16)
[2019-12-14] MEDS ORDERED: ACETAMINOPHEN 325 MG TABLET (FP) PO ONE (11:17)
[2019-12-14] MEDS ORDERED: ACETAMINOPHEN 325 MG TABLET (FP) ONE (11:26)
[2019-12-14] MEDS ORDERED: KETOROLAC TROMETHAMINE 30 MG/1 ML VIAL IVPUSH ONE (12:28)
[2019-12-14] MEDS ORDERED: KETOROLAC TROMETHAMINE 30 MG/1 ML VIAL ONE (12:37)
[2019-12-14] MEDS ORDERED: morphine CARPU-JECT 4 MG/1 ML DISP.SYRIN IVPUSH ONE (12:56)
[2019-12-14] MEDS ORDERED: LACTATED RINGERS SOLUTION 1,000 ML/1,000 ML INFUS.BAG IV SCH (13:15)
[2019-12-14] MEDS ORDERED: MORPHINE SULFATE 2 MG/ML VIAL ONE (13:34)
[2019-12-14 13:59] VITALS: BP 135/75; PULSE 60
== END 2019-12-14 14:45 | disposition home or self-care (01) ==
LOC: JER 06:46
PROC: 3E033NZ Introduction of Analgesics, Hypnotics, Sedatives into Peripheral Vein, Percutaneous Approach (ICD-10-PCS; principal; 2019-12-14)
PROC: 3E033GC Introduction of Other Therapeutic Substance into Peripheral Vein, Percutaneous Approach (ICD-10-PCS; 2019-12-14)
DX: N20.0 Calculus of kidney (principal)
CPT/HCPCS: 36415; 74176-TC; 76775-TC; 80053; 81003; 85025; 87086; 99285-25

== ENCOUNTER 2020-02-16 14:17 | Emergency (ER) | payer BC ==
--- OUTSIDE RECORDS SUMMARY | 2020-02-16 14:25 | XMS ---
:1970 Author Organization [facility] Support Name Relationship Address Phone [facility] Unavailable [address] [phone] [place] [address] MARIELY GARSIA [address] [place] [address] Mariely Burgos A Father [phone] [place] [id number] Re-disclosure Warning The records that you are about to access may contain information from federally- assisted alcohol or drug abuse programs. If such information is present, then the following federally mandated warning applies: This information has been disclosed to you from records protected by federal confidentiality rules (42 CFR part 2). The federal rules prohibit you from making any further disclosure of this information unless further disclosure is expressly permitted by the written consent of the person to whom it pertains or as otherwise permitted by 42 CFR part 2. A general authorization for the release of medical or other information is NOT sufficient for this purpose. The Federal rules restrict any use of the information to criminally investigate or prosecute any alcohol or drug abuse patient.The records that you are about to access may contain highly sensitive health information, the redisclosure of which is protected by Article 27-F of the [facility] Public Health law. If you continue you may haveaccess to information: Regarding HIV / AIDS; Provided by facilities licensed or operated by the [facility] Office of Mental Health; or Provided by the [facility] Office for People With Developmental Disabilities. If such information is present, then the following [facility] mandated warning applies: This information has been disclosed to you from confidential records which are protected by state law. State law prohibits you from making any further disclosure of this information without the specific written consent of the person to whom it pertains, or as otherwise permitted by law. Any unauthorized further disclosure in violation of state law may result in a fine or residential sentence or both. A general authorization for the release of medical or other information is NOT sufficient authorization for further disclosure. Insurance Providers Payer name Policy type Policy ID Covered Covered green party's Policy P mile / Coverage green party ID relationship to [employer] ormation type griffin BC POS [id number] SP [id number] SELF PAY INSURANCE
[2020-02-16 14:28] VITALS: TEMP 98; BMI 28.3
[2020-02-16] MEDS ORDERED: SODIUM CHLORIDE 1,000 ML IV STA (14:30)
[2020-02-16] MEDS ORDERED: KETOROLAC TROMETHAMINE 30 MG/1 ML VIAL IVPUSH ONE (14:30)
[2020-02-16] MEDS ORDERED: ONDANSETRON 4 MG/2 ML VIAL IVPUSH ONE (14:30)
--- NOTE | 2020-02-16 14:34 | PDOC ---
History of Present Illness - General History Source: Patient - History of Present Illness Timing/Duration: reports: getting worse Abdominal Pain Onset Location: reports: flank <Germain Aviles - Last Filed: 02/16/20 19:01> <Xiomy Greer - Last Filed: 02/18/20 04:19> - General Chief Complaint: Pain, Acute Stated Complaint: KIDNEY PROBLEM Time Seen by Provider: 02/16/20 14:25 Past History - Medical History COPD: No Kidney Stones: Yes - Immunization History Immunization Up to Date: No - Psycho-Social/Smoking History Smoking History: Never smoked Have you smoked in the past 12 months: No <Germain Aviles - Last Filed: 02/16/20 19:01> <Xiomy Greer - Last Filed: 02/18/20 04:19> - Medical History Allergies/Adverse Reactions: Allergies Allergy/AdvReac Type Severity Reaction Status Date / Time apple Allergy Swelling Verified 02/16/20 14:28 peach Allergy Swelling Verified 02/16/20 14:28 Home Medications: Ambulatory Orders Fenofibrate Nanocrystallized [Fenofibrate] 145 mg PO DAILY 05/19/18 Ondansetron [Zofran *Odt*] 4 mg SL TID PRN #18 od.tablet 12/14/19 Tamsulosin HCl [Flomax -] 0.4 mg PO ONCE PRN #7 capsule 12/14/19 Ibuprofen [Motrin -] 800 mg PO QID #30 tablet 02/16/20 Ondansetron HCl [Zofran] 4 mg PO Q8H #12 tablet 02/16/20 Review of Systems - Review of Systems Constitutional: No: Chills, Fever ABD/GI: Yes: Nausea, Vomiting : Yes: Flank Pain. No: Dysuria, Hematuria <Germain Aviles - Last Filed: 02/16/20 19:01> *Physical Exam - Vital Signs Last Vital Signs Temp Pulse Resp BP Pulse Ox 98 F 66 16 121/80 100 02/16/20 14:20 02/16/20 14:20 02/16/20 14:20 02/16/20 14:20 02/16/20 14:20 - Physical Exam General Appearance: Yes: Appropriately Dressed. No: Apparent Distress HEENT: positive: Normal Voice Neck: positive: Supple Respiratory/Chest: negative: Respiratory Distress Gastrointestinal/Abdominal: positive: Soft. negative: Tender Musculoskeletal: positive: CVA Tenderness (L) (? L CVAT) Integumentary: positive: Dry, Warm Neurologic: positive: Fully Oriented, Alert, Normal Mood/Affect <Germain Aviles - Last Filed: 02/16/20 19:01> - Vital Signs Last Vital Signs Temp Pulse Resp BP Pulse Ox 98 F 64 20 130/77 100 02/16/20 14:20 02/16/20 17:29 02/16/20 17:29 02/16/20 17:29 02/16/20 14:20 <Xiomy Greer - Last Filed: 02/18/20 04:19> ED Treatment Course - LABORATORY CBC & Chemistry Diagram: 02/16/20 14:45 02/16/20 14:45 - RADIOLOGY Radiology Studies Ordered: Category Date Time Status ABDOMEN & PELVIS CT W/O CONTR [CT] Stat CT Scan 02/16/20 14:30 Ordered <Germain Aviles - Last Filed: 02/16/20 19:01> - LABORATORY CBC & Chemistry Diagram: 02/16/20 14:45 02/16/20 14:45 - ADDITIONAL ORDERS Additional order review: 02/16/20 14:45 RBC 4.95 MCV 86.1 MCHC 34.7 RDW 13.5 MPV 8.4 Neutrophils % 86.3 H Lymphocytes % 7.2 L Monocytes % 6.2 D Eosinophils % 0.1 Basophils % 0.2 - Medications Given in the ED: ED Medications Discontinued Medications Generic Name Dose Route Start Last Admin Trade Name Davonq PRN Reason Stop Dose Admin Sodium Chloride 1,000 mls @ 1,000 mls/hr 02/16/20 14:30 02/16/20 14:50 Normal Saline - IV 02/16/20 15:29 1,000 mls/hr ASDIR STA Administration Ketorolac Tromethamine 30 mg 02/16/20 14:30 02/16/20 14:50 Toradol Injection - IVPUSH 02/16/20 14:31 30 mg ONCE ONE Administration Ondansetron HCl 4 mg 02/16/20 14:30 02/16/20 15:15 Zofran Injection IVPUSH 02/16/20 14:31 4 mg ONCE ONE Administration <Xiomy Greer - Last Filed: 02/18/20 04:19> Medical Decision Making - Medical Decision Making 02/16/20 14:31 49-year-old male, history of uncomplicated kidney stones here with L flank pain with nausea vomiting since this a.m. Taking Motrin with no relief and took 1 dose of left over flomax. No dysuria, hematuria, fever or chills. Of note, patient was seen for similar episode about 2 months ago when patient was found to have a recent passed bladder stone. It was noted at the time that there was a 2 mm nonobstructing stone in the upper pole of the left kidney see exam L flank pain Suspect recurrent renal stone -pain control -IVF -labs -CT 02/16/20 14:34 02/16/20 19:01 CT read as 1.8 mm stone at the left UVJ versus within the bladder w/ mild hydro/stranding. Labs and urine unremarkable. Patient has since improved and stable for discharge with appropriate meds, strainer and follow-up 02/16/20 19:05 <Germain Aviles - Last Filed: 02/16/20 19:01> - Medical Decision Making I reviewed the case with the mid-level practitioner and agree with the mid-level practitioner's assessment, diagnosis and disposition. <Xiomy Greer - Last Filed: 02/18/20 04:19> Discharge - Discharge Information Problems reviewed: Yes <Germain Aviles - Last Filed: 02/16/20 19:01> <Xiomy Greer - Last Filed: 02/18/20 04:19> - Discharge Information Clinical Impression/Diagnosis: Kidney calculi Condition: Improved Disposition: HOME - Additional Discharge Information Prescriptions: Ibuprofen [Motrin -] 800 mg PO QID #30 tablet Ondansetron HCl [Zofran] 4 mg PO Q8H #12 tablet - Follow up/Referral Referrals: Brittani Samuels MD [Primary Care Provider] - - Patient Discharge Instructions Patient Printed Discharge Instructions: Kidney Stones -- Adult Additional Instructions: You have a 1.8 mm stone on the left side, near or in your bladder Take medication as prescribed and use strainer to collect urine Please follow-up with your urologist - Post Discharge Activity
[2020-02-16] MEDS ORDERED: ONDANSETRON 4 MG/2 ML VIAL ONE (14:44)
[2020-02-16] MEDS ORDERED: KETOROLAC TROMETHAMINE 30 MG/1 ML VIAL ONE (14:44)
[2020-02-16 15:02] LABS: BASO % 0.2 % (0-2.0); EOS % 0.1 % (0-4.5); HEMATOCRIT 42.6 % (35.4-49); HEMOGLOBIN 14.8 GM/dL (11.7-16.9); LYMPH % 7.2 % (8-40); MCH 29.8 pg (25.7-33.7); MCHC 34.7 g/dl (32.0-35.9); MEAN CELL VOLUME 86.1 fl (80-96); MEAN PLT VOLUME 8.4 fl (7.5-11.1); MONO % 6.2 % (3.8-10.2); NEUT % 86.3 % (42.8-82.8); PLATELET COUNT 193 K/MM3 (134-434); RBC 4.95 M/mm3 (4.00-5.60); RDW 13.5 % (11.9-15.9); WHITE BLOOD COUNT 12.3 K/mm3 (4.0-10.0)
[2020-02-16 15:30] LABS: BILIRUBIN,TOTAL 0.6 mg/dL (0.2-1); BLOOD UREA NITROGEN 22.5 mg/dL (7-18); CALCIUM 8.9 mg/dL (8.5-10.1); CREATININE 1.2 mg/dL (0.55-1.3); POTASSIUM 3.8 mmol/L (3.5-5.1); TOT PROT 7.7 g/dl (6.4-8.2)
[2020-02-16 17:30] VITALS: BP 130/77; PULSE 64
[2020-02-16 18:20] LABS: URINE APPEARANCE TURBID; URINE BILIRUBIN NEGATIVE (NEGATIVE); URINE COLOR YELLOW; URINE GLUCOSE (UA) NEGATIVE (NEGATIVE); URINE KETONE NEGATIVE (NEGATIVE); URINE LEUK ESTERASE NEGATIVE (NEGATIVE); URINE NITRITE NEGATIVE (NEGATIVE); URINE PROTEIN NEGATIVE (NEGATIVE); URINE UROBILINOGEN 0.2 mg/dL (0.2-1.0)
== END 2020-02-16 19:15 | disposition home or self-care (01) ==
LOC: JER 14:17
PROC: 3E0333Z Introduction of Anti-inflammatory into Peripheral Vein, Percutaneous Approach (ICD-10-PCS; principal; 2020-02-16)
PROC: 3E033GC Introduction of Other Therapeutic Substance into Peripheral Vein, Percutaneous Approach (ICD-10-PCS; 2020-02-16)
PROC: 3E0337Z Introduction of Electrolytic and Water Balance Substance into Peripheral Vein, Percutaneous Approach (ICD-10-PCS; 2020-02-16)
DX: N20.0 Calculus of kidney (principal)
CPT/HCPCS: 36415; 74176-TC; 80053; 81003; 85025; 87086; 99284-25

== ENCOUNTER 2022-08-17 10:16 | Emergency (ER) | payer BC ==
[2022-08-17 10:22] VITALS: BMI 27.3
[2022-08-17] MEDS ORDERED: SODIUM CHLORIDE 1,000 ML IV STA ×2 (11:04→12:48)
[2022-08-17] MEDS ORDERED: KETOROLAC TROMETHAMINE 15 MG/ML VIAL IVPUSH ONE ×2 (11:04→15:17)
[2022-08-17] MEDS ORDERED: ONDANSETRON 4 MG/2 ML VIAL IVPUSH ONE (11:04)
[2022-08-17] MEDS ORDERED: ONDANSETRON 4 MG/2 ML VIAL ONE (11:13)
[2022-08-17] MEDS ORDERED: KETOROLAC TROMETHAMINE 15 MG/ML VIAL ONE ×2 (11:13→15:35)
[2022-08-17 12:04] LABS: BASO % 0.3 % (0-2.0); EOS % 0.2 % (0-4.5); HEMATOCRIT 44.7 % (35.4-49); HEMOGLOBIN 15.4 GM/dL (11.7-16.9); LYMPH % 8.2 % (8-40); MCH 29.6 pg (25.7-33.7); MCHC 34.4 g/dl (32.0-35.9); MEAN CELL VOLUME 86.1 fl (80-96); MEAN PLT VOLUME 8.8 fl (7.5-11.1); MONO % 2.8 % (3.8-10.2); NEUT % 88.5 % (42.8-82.8); PLATELET COUNT 226 10^3/uL (134-434); RBC 5.19 M/mm3 (4.00-5.60); WHITE BLOOD COUNT 11.1 K/mm3 (4.0-10.0)
[2022-08-17 12:08] LABS: EPI CELLS 1 /uL (0-25.1); HYALINE CASTS 0 /uL (0-3.1); URINE APPEARANCE CLEAR; URINE BACTERIA 12 /uL (0-1359); URINE BILIRUBIN NEGATIVE (NEGATIVE); URINE COLOR YELLOW; URINE GLUCOSE (UA) NEGATIVE (NEGATIVE); URINE KETONE NEGATIVE (NEGATIVE); URINE LEUK ESTERASE NEGATIVE (NEGATIVE); URINE NITRITE NEGATIVE (NEGATIVE); URINE PROTEIN NEGATIVE (NEGATIVE); URINE RBC 41 /uL (0-23.9); URINE UROBILINOGEN 0.2 mg/dL (0.2-1.0); URINE WBC 2 /uL (0-25.8)
[2022-08-17 12:27] LABS: CALCIUM 9.4 mg/dL (8.5-10.1)
[2022-08-17 12:28] LABS: ALBUMIN 4.2 g/dl (3.4-5.0); BLOOD UREA NITROGEN 23.4 mg/dL (7-18)
[2022-08-17 12:31] LABS: CREATININE 1.2 mg/dL (0.55-1.3)
[2022-08-17 12:32] LABS: TOT PROT 8.2 g/dl (6.4-8.2)
[2022-08-17] MEDS ORDERED: ACETAMINOPHEN 1000 MG/100 ML BAG IVPB ONE (12:48)
[2022-08-17] MEDS ORDERED: ACETAMINOPHEN INJECTION 100 ML IVPB ONE (13:38)
[2022-08-17] MEDS ORDERED: morphine CARPU-JECT 4 MG/1 ML DISP.SYRIN IVPUSH ONE (14:23)
[2022-08-17] MEDS ORDERED: morphine SULFATE 4 MG/ML VIAL ONE (14:37)
[2022-08-17] MEDS ORDERED: SODIUM CHLORIDE 1,000 ML IV SCH (15:30)
[2022-08-17 17:38] VITALS: BP 146/83; PULSE 66; RESP 18; TEMP 98.1
== END 2022-08-17 18:20 | disposition admitted as inpatient to this hospital (09) ==
LOC: JER 10:16 → JERBED 14:37 → UNDOADMIN 14:37 → JER 18:20
PROC: 3E033NZ Introduction of Analgesics, Hypnotics, Sedatives into Peripheral Vein, Percutaneous Approach (ICD-10-PCS; principal; 2022-08-17)
PROC: 3E033GC Introduction of Other Therapeutic Substance into Peripheral Vein, Percutaneous Approach (ICD-10-PCS; 2022-08-17)
PROC: 3E033GC Introduction of Other Therapeutic Substance into Peripheral Vein, Percutaneous Approach (ICD-10-PCS; 2022-08-17)
PROC: 3E033GC Introduction of Other Therapeutic Substance into Peripheral Vein, Percutaneous Approach (ICD-10-PCS; 2022-08-17)
PROC: 3E033GC Introduction of Other Therapeutic Substance into Peripheral Vein, Percutaneous Approach (ICD-10-PCS; 2022-08-17)
PROC: 3E0337Z Introduction of Electrolytic and Water Balance Substance into Peripheral Vein, Percutaneous Approach (ICD-10-PCS; 2022-08-17)
PROC: 3E0337Z Introduction of Electrolytic and Water Balance Substance into Peripheral Vein, Percutaneous Approach (ICD-10-PCS; 2022-08-17)
DX: N20.0 Calculus of kidney (principal); R10.9 Unspecified abdominal pain; R11.0 Nausea; R51.9 Headache, unspecified; R68.83 Chills (without fever); R61 Generalized hyperhidrosis
CPT/HCPCS: 36415; 74176-TC; 80053; 81003; 83690; 85025; 87086; 99284-25

== ENCOUNTER 2023-07-11 17:06 | Emergency (ER) | payer BC ==
[2023-07-11 17:13] VITALS: BMI 25.8
[2023-07-11] MEDS ORDERED: KETOROLAC TROMETHAMINE 15 MG/ML VIAL IVPUSH ONE (18:15)
[2023-07-11] MEDS ORDERED: ONDANSETRON 4 MG/2 ML VIAL ONE ×2 (18:36→18:54)
[2023-07-11] MEDS ORDERED: HYDROmorphone HCl 2 MG/ML VIAL ONE (18:36)
[2023-07-11 18:38] LABS: HEMATOCRIT 44.1 % (35.4-49); HEMOGLOBIN 15.4 GM/dL (11.7-16.9); MCHC 34.9 g/dl (32.0-35.9); MEAN CELL VOLUME 85.9 fl (80-96); MEAN PLT VOLUME 7.8 fl (7.5-11.1); PLATELET COUNT 239 10^3/uL (134-434); RBC 5.14 M/mm3 (4.00-5.60); RDW 13.6 % (11.9-15.9); WHITE BLOOD COUNT 9.2 K/mm3 (4.0-10.0)
[2023-07-11 18:42] LABS: EPI CELLS 7 /uL (0-25.1); HYALINE CASTS 3 /uL (0-3.1); URINE APPEARANCE TURBID; URINE BACTERIA 1 /uL (0-1359); URINE BILIRUBIN 1+ (NEGATIVE); URINE COLOR RED; URINE GLUCOSE (UA) NEGATIVE (NEGATIVE); URINE KETONE NEGATIVE (NEGATIVE); URINE LEUK ESTERASE 1+ (NEGATIVE); URINE NITRITE NEGATIVE (NEGATIVE); URINE PROTEIN 2+ (NEGATIVE); URINE RBC 36471 /uL (0-23.9); URINE UROBILINOGEN 0.2 mg/dL (0.2-1.0); URINE WBC 81 /uL (0-25.8)
[2023-07-11] MEDS: SODIUM CHLORIDE 0.9% 500 ML INFUS.BAG IV ONE (18:53)
[2023-07-11] MEDS: HYDROmorphone HCl 2 MG/ML VIAL IVPUSH ONE (18:53)
[2023-07-11] MEDS: ONDANSETRON 4 MG/2 ML VIAL IVPB ONE (18:53)
[2023-07-11 18:54] LABS: POTASSIUM 3.6 mmol/L (3.5-5.1)
[2023-07-11 18:56] LABS: ALBUMIN 4.1 g/dl (3.4-5.0); BLOOD UREA NITROGEN 16.5 mg/dL (7-18); CALCIUM 9.2 mg/dL (8.5-10.1)
[2023-07-11] MEDS: ONDANSETRON 4 MG/2 ML VIAL IVPUSH ONE (18:57)
[2023-07-11 18:59] LABS: CREATININE 0.9 mg/dL (0.55-1.3)
[2023-07-11 19:01] LABS: BILIRUBIN,TOTAL 0.6 mg/dL (0.2-1); TOT PROT 7.9 g/dl (6.4-8.2)
[2023-07-11] MEDS ORDERED: METOCLOPRAMIDE HCL INJECTION 10 MG/2 ML VIAL ONE (20:16)
[2023-07-11] MEDS ORDERED: KETOROLAC TROMETHAMINE 15 MG/ML VIAL ONE (20:17)
[2023-07-11] MEDS: KETOROLAC TROMETHAMINE 15 MG/ML VIAL IVPUSH ONE (20:24)
[2023-07-11] MEDS: METOCLOPRAMIDE HCL INJECTION 10 MG/2 ML VIAL IVPUSH ONE (20:24)
[2023-07-11 21:10] VITALS: BP 130/79; PULSE 73; RESP 18; TEMP 97.9
[2023-07-11] MEDS ORDERED: TAMSULOSIN HCL 0.4 MG CAP ONE (21:46)
[2023-07-11] MEDS: TAMSULOSIN HCL 0.4 MG CAP PO ONE (21:48)
== END 2023-07-11 22:29 | disposition home or self-care (01) ==
LOC: JER 17:06
PROC: 3E033NZ Introduction of Analgesics, Hypnotics, Sedatives into Peripheral Vein, Percutaneous Approach (ICD-10-PCS; principal; 2023-07-11)
PROC: 3E033GC Introduction of Other Therapeutic Substance into Peripheral Vein, Percutaneous Approach (ICD-10-PCS; 2023-07-11)
PROC: 3E033GC Introduction of Other Therapeutic Substance into Peripheral Vein, Percutaneous Approach (ICD-10-PCS; 2023-07-11)
PROC: 3E033GC Introduction of Other Therapeutic Substance into Peripheral Vein, Percutaneous Approach (ICD-10-PCS; 2023-07-11)
PROC: 3E033NZ Introduction of Analgesics, Hypnotics, Sedatives into Peripheral Vein, Percutaneous Approach (ICD-10-PCS; 2023-07-11)
DX: R10.9 Unspecified abdominal pain (principal); R11.0 Nausea; N20.0 Calculus of kidney; R31.0 Gross hematuria; Z20.822 Contact with and (suspected) exposure to COVID-19
CPT/HCPCS: 0241U-QW; 36415; 74176-TC; 80053; 81003; 83690; 85027; 87086; 99284-25